=== PATIENT | female | born 1975 | race Caucasian/White ===

== ENCOUNTER 2020-08-06 09:22 | Emergency (ER) | payer OTHER ==
[2020-08-06 10:39] LABS: HEMOGLOBIN 14.3 gm/dl (12.3-15.3); RED BLOOD COUNT 5.02 M/UL (4.00-5.10); WHITE BLOOD COUNT 10.1 K/UL (4.5-11.0)
[2020-08-06 11:04] LABS: BUN/CREATININE RATIO 18 (0-10)
[2020-08-06] MEDS ORDERED: ZOFRAN ODT 4 MG4 MG PO (15:51)
[2020-08-06] MEDS ORDERED: IBUPROFEN600 MG PO (15:51)
[2020-08-13] MEDS ORDERED: PROGESTERONE100 MG PO (10:27)
[2020-08-13] MEDS ORDERED: FOLIC ACID1 MG PO (10:27)
[2020-08-13] MEDS ORDERED: FLOMAX 0.4 MG0.4 MG PO (10:28)
[2020-08-13] MEDS ORDERED: ZOFRAN ODT 4 MG4 MG PO (10:28)
[2020-08-13] MEDS ORDERED: VITAMIN D350 MC3 PO (10:28)
[2020-08-13] MEDS ORDERED: LEVOTHYROXINE88 MC1 PO (10:29)
[2020-08-13] MEDS ORDERED: MOBIC15 MG PO (10:29)
[2020-08-13] MEDS ORDERED: KLONOPIN1 MG PO (10:29)
[2020-08-13] MEDS ORDERED: FLUTICASONE SPRAY (10:30)
[2020-08-13] MEDS ORDERED: IMITREX100 MG PO (10:31)
[2020-08-13] MEDS ORDERED: ESTRADIOL1 MG PO (10:31)
[2020-08-13] MEDS ORDERED: ROPINIROLE HCL0.5 MG PO (10:32)
[2020-08-13] MEDS ORDERED: BUPROPION XL150 MG PO (10:32)
[2020-08-13] MEDS ORDERED: BACLOFEN10 MG PO (10:32)
== END 2020-08-06 16:00 | disposition home or self-care (01) ==
LOC: ER1 09:22
PROVIDERS: Emergency Medicine
DX: N20.0 Calculus of kidney (principal); R10.11 Right upper quadrant pain; Z88.0 Allergy status to penicillin; Z85.820 Personal history of malignant melanoma of skin
CPT/HCPCS: 80053; 81001; 82550; 82553; 83605; 83690; 83874; 84484; 84703; 85025; 93005; 96374; 96375; 99284; J2270; J2405; J7030; Q9967

== ENCOUNTER 2020-08-08 07:43 | Emergency (ER) | payer OTHER ==
[~2020-08-08 07:43] MED LIST: IBUPROFEN600 MG PO; ZOFRAN ODT 4 MG4 MG PO
[2020-08-08 08:47] LABS: HEMOGLOBIN 14.9 gm/dl (12.3-15.3); RED BLOOD COUNT 4.95 M/UL (4.00-5.10); WHITE BLOOD COUNT 9.6 K/UL (4.5-11.0)
[2020-08-08 09:04] LABS: BUN/CREATININE RATIO 20 (0-10)
[2020-08-08] MEDS ORDERED: HYDROCODON-ACE1 EAC2 PO (10:55)
[2020-08-08] MEDS ORDERED: ZOFRAN ODT 4 MG4 MG PO (10:55)
[2020-08-13] MEDS ORDERED: FOLIC ACID1 MG PO (10:27)
[2020-08-13] MEDS ORDERED: PROGESTERONE100 MG PO (10:27)
[2020-08-13] MEDS ORDERED: ZOFRAN ODT 4 MG4 MG PO (10:28)
[2020-08-13] MEDS ORDERED: VITAMIN D350 MC3 PO (10:28)
[2020-08-13] MEDS ORDERED: FLOMAX 0.4 MG0.4 MG PO (10:28)
[2020-08-13] MEDS ORDERED: MOBIC15 MG PO (10:29)
[2020-08-13] MEDS ORDERED: KLONOPIN1 MG PO (10:29)
[2020-08-13] MEDS ORDERED: LEVOTHYROXINE88 MC1 PO (10:29)
[2020-08-13] MEDS ORDERED: FLUTICASONE SPRAY (10:30)
[2020-08-13] MEDS ORDERED: IMITREX100 MG PO (10:31)
[2020-08-13] MEDS ORDERED: ESTRADIOL1 MG PO (10:31)
[2020-08-13] MEDS ORDERED: BUPROPION XL150 MG PO (10:32)
[2020-08-13] MEDS ORDERED: BACLOFEN10 MG PO (10:32)
[2020-08-13] MEDS ORDERED: ROPINIROLE HCL0.5 MG PO (10:32)
== END 2020-08-08 11:32 | disposition home or self-care (01) ==
LOC: ER1 07:43
PROVIDERS: Physician Assistant
DX: N20.2 Calculus of kidney with calculus of ureter (principal); F41.9 Anxiety disorder, unspecified; E07.9 Disorder of thyroid, unspecified; Z87.442 Personal history of urinary calculi; Z88.0 Allergy status to penicillin
CPT/HCPCS: 74018; 80053; 81001; 84703; 85025; 96374; 96375; 99284; J1885; J2405

== ENCOUNTER → 2020-08-17 | Day surgery (SDC) | payer OTHER ==
[~2020-08-17] MED LIST changes: +BACLOFEN10 MG PO; +BUPROPION XL150 MG PO; +ESTRADIOL1 MG PO; +FLOMAX 0.4 MG0.4 MG PO; +FLUTICASONE SPRAY; +FOLIC ACID1 MG PO; +HYDROCODON-ACE1 EAC2 PO; +IMITREX100 MG PO; +KLONOPIN1 MG PO; +LEVOTHYROXINE88 MC1 PO; +MOBIC15 MG PO; +PROGESTERONE100 MG PO; +ROPINIROLE HCL0.5 MG PO; +VITAMIN D350 MC3 PO
== END | disposition home or self-care (01) ==
LOC: OR 11:46
DX: N20.0 Calculus of kidney (principal); F41.9 Anxiety disorder, unspecified; E03.9 Hypothyroidism, unspecified; Z88.0 Allergy status to penicillin; Z79.899 Other long term (current) drug therapy
CPT/HCPCS: C1769; J1100; J1956; J2001; J2250; J2405; J2704; J3010; J7030; J7120

== ENCOUNTER → 2020-09-02 | Outpatient (CLI) | payer OTHER | LOC: RAD 11:17 | DX: R11.0 Nausea (principal); N28.89 Other specified disorders of kidney and ureter | CPT/HCPCS: 74018 ==

== ENCOUNTER 2020-09-12 19:04 | Emergency (ER) | payer OTHER ==
[2020-09-12 20:13] LABS: RED BLOOD COUNT 4.64 M/UL (4.00-5.10); WHITE BLOOD COUNT 10.8 K/UL (4.5-11.0)
[2020-09-12 20:29] LABS: BUN/CREATININE RATIO 12 (0-10)
== END 2020-09-12 23:50 | disposition home or self-care (01) ==
LOC: ER1 19:04
PROVIDERS: Physician Assistant
DX: R07.89 Other chest pain (principal); R60.0 Localized edema; I10 Essential (primary) hypertension; Z88.0 Allergy status to penicillin
CPT/HCPCS: 71045; 80053; 82550; 82553; 83874; 83880; 84484; 85025; 85379; 85610; 85730; 93005; 99285

== ENCOUNTER 2020-09-16 16:17 | Emergency (ER) | payer OTHER ==
[2020-09-16 18:06] LABS: HEMOGLOBIN 12.8 gm/dl (12.3-15.3); RED BLOOD COUNT 4.31 M/UL (4.00-5.10); WHITE BLOOD COUNT 11.4 K/UL (4.5-11.0)
[2020-09-16 18:26] LABS: BUN/CREATININE RATIO 22 (0-10)
== END 2020-09-16 22:41 | disposition home or self-care (01) ==
LOC: ER1 16:17
PROVIDERS: Emergency Medicine
DX: R06.00 Dyspnea, unspecified (principal); R60.0 Localized edema; I10 Essential (primary) hypertension; Z88.0 Allergy status to penicillin
CPT/HCPCS: 71045; 80053; 81001; 82550; 82553; 83690; 83735; 83874; 83880; 84100; 84439; 84443; 84484; 85025; 85379; 85610; 85730; 93005; 99285; Q9967

== ENCOUNTER → 2020-10-02 | Outpatient (CLI) | payer OTHER | LOC: KOH-I 13:09 | DX: R63.4 Abnormal weight loss (principal) | CPT/HCPCS: 76775 ==

== ENCOUNTER → 2021-01-04 | Outpatient (CLI) | payer OTHER | LOC: KOH-I 09:07 | DX: R10.9 Unspecified abdominal pain (principal); N20.0 Calculus of kidney | CPT/HCPCS: 74176 ==

== ENCOUNTER → 2022-02-08 | Day surgery (SDC) | payer OTHER ==
[~2022-02-08] MED LIST changes: -BACLOFEN10 MG PO; +BACLOFEN20 MG PO; +CALCIUM 600 +1 EA10 PO; +EVENING PRIMRO500 M1 PO; +FLOMAX0.4 MG PO; +IMURAN50 MG PO; +LASIX20 MG PO; +MIRAPEX0.25 MG PO; +NABUMETONE500 MG PO; +PLAQUENIL200 MG PO; +PREDNISONE 10 M10 MG PO; +PRISTIQ PO; +PROBIOTIC PO; +QUERCETIN PO; +TYLENOL EXTRA500 MG PO; +VIT B 12 PO; +VITC PO; +ZINC50 M1 PO
== END | disposition home or self-care (01) ==
LOC: OR 07:32
DX: M60.9 Myositis, unspecified (principal); M06.9 Rheumatoid arthritis, unspecified; F41.9 Anxiety disorder, unspecified; E03.9 Hypothyroidism, unspecified; Z88.0 Allergy status to penicillin; Z79.899 Other long term (current) drug therapy
CPT/HCPCS: J0690; J1100; J2001; J2250; J2405; J2704; J3010